=== PATIENT | male | born 1965 | race Caucasian/White ===

== ENCOUNTER 2019-03-04 18:13 | Emergency (ER) | payer BC ==
[2019-03-04 18:33] VITALS: BP 131/83; PULSE 94; RESP 18; TEMP 100.3
--- NOTE | 2019-03-04 19:24 | ED ---
Upper Extremity HPI - General Chief Complaint: Extremity Injury, Upper Stated Complaint: Arm injury Time Seen by Provider: 03/04/19 18:33 Source: patient, EMS Mode of arrival: EMS Limitations: no limitations - History of Present Illness Initial Comments: This is a 48-year-old male here for evaluation status post fall. Patient fall last night from standing onto his right side complaining of severe right-sided pain. Right-sided humerus pain and right-sided arm pain. Patient is able to move his arm without significant difficulty. Patient denying any weakness of his hand and inability to move his hand or forearm. Patient has pain with hands well controlled currently. Patient is somatic injury. Patient was urged to see a [facility] this afternoon and sent here for evaluation by orthopedics. No change in symptoms, patient currently has splint placed MD Complaint: Injury to:: left, shoulder, arm -: days(s) Other Extremity Injury: Arm: Left Other Injuries: none Handedness: right Place: home Severity scale (1-10): 8 Improves With: none Worsens With: none Context: fall, direct blow Associated Symptoms: denies other symptoms - Related Data Allergies Allergy/AdvReac Type Severity Reaction Status Date / Time Penicillins Allergy Rash/Hives Verified 03/04/19 18:29 Review of Systems ROS Statement: Those systems with pertinent positive or pertinent negative responses have been documented in the HPI. ROS Other: All systems not noted in ROS Statement are negative. Past Medical History Past Medical History: No Reported History History of Any Multi-Drug Resistant Organisms: None Reported Past Surgical History: No Surgical Hx Reported Past Psychological History: No Psychological Hx Reported Smoking Status: Current every day smoker Past Alcohol Use History: Occasional Past Drug Use History: None Reported General Exam - General Exam Comments Initial Comments: Left humerus is splinted, patient has good radial ulnar pulses left wrist. Good function of nerves, neurovascular intact radial ulnar and median nerve Limitations: no limitations General appearance: alert, in no apparent distress Head exam: Present: atraumatic, normocephalic, normal inspection Eye exam: Present: normal appearance, PERRL, EOMI. Absent: scleral icterus, conjunctival injection, periorbital swelling ENT exam: Present: normal exam, mucous membranes moist Neck exam: Present: normal inspection. Absent: tenderness, meningismus, lymphadenopathy Respiratory exam: Present: normal lung sounds bilaterally. Absent: respiratory distress, wheezes, rales, rhonchi, stridor Cardiovascular Exam: Present: regular rate, normal rhythm, normal heart sounds. Absent: systolic murmur, diastolic murmur, rubs, gallop, clicks GI/Abdominal exam: Present: soft, normal bowel sounds. Absent: distended, tenderness, guarding, rebound, rigid Extremities exam: Present: normal inspection, full ROM, normal capillary refill. Absent: tenderness, pedal edema, joint swelling, calf tenderness Back exam: Present: normal inspection Neurological exam: Present: alert, oriented X3, CN II-XII intact Psychiatric exam: Present: normal affect, normal mood Skin exam: Present: warm, dry, intact, normal color. Absent: rash Course Vital Signs 03/04/19 18:29 Temperature 100.3 F H Pulse Rate 94 Respiratory 18 Rate Blood Pressure 131/83 O2 Sat by Pulse 95 Oximetry - Reevaluation(s) Reevaluation #1: 03/04/19 21:24 Medical record as well as patient's transferring imaging is reviewed Reevaluation #2: 03/04/19 21:24 X-ray of left humerus shows a comminuted fracture Reevaluation #3: 03/04/19 21:[address] Soto, patient with pain control, they will follow up on an outpatient basis with Medical Decision Making - Medical Decision Making 55 mail to the ER status post fall significant left humerus fracture which is currently splinted. Patient given pain control and discharged home - Radiology Data Radiology results: report reviewed (X-ray left humerus social comminuted multiple fragment humerus fracture), image reviewed Disposition Clinical Impression: Fall, Comminuted left humeral fracture Disposition: HOME SELF-CARE Condition: Good Instructions (If sedation given, give patient instructions): Arm Fracture in Adults (ED) Is patient prescribed a controlled substance at d/c from ED?: Yes When asked, does pt state using other controlled substances?: No If prescribed controlled substance>3 days was MAPS reviewed?: Prescribed <3 Days Referrals: Gonzalo Soto DO [Doctor of Osteopathic Medicine] - 1-2 days
[2019-03-04] MEDS ORDERED: SODIUM CHLORIDE 0.9% 1,000 ML IV STA (19:34)
[2019-03-04] MEDS ORDERED: MORPHINE SULFATE 4 MG/ML SYRINGE IVP STA ×2 (19:34→21:26)
[2019-03-04] MEDS ORDERED: MORPHINE SULFATE 4 MG/ML SYRINGE IVP PRN (19:34)
--- NOTE | 2019-03-04 20:47 | XR ---
EXAMINATION TYPE: XR humerus LT DATE OF EXAM: 03/04/2019 CLINICAL HISTORY: Fall TECHNIQUE: Two views of the left humerus are obtained. COMPARISON: CT outside facility 03/04/2019. FINDINGS/IMPRESSION: Interval splinting. Mildly comminuted fracture through the proximal/mid humeral diaphysis apex latera lly angulated. Medial butterfly fragment present. There is up to 1 cm displacement of fracture fragme nts. Adjacent soft tissue swelling.
[2019-03-04] MEDS ORDERED: Acetaminophen-Codeine 300-30mg TAB PO STA (21:26)
[2019-03-04] MEDS ORDERED: ACET/COD 300 MG/30 MG STARTER PACK 6 TAB BTL PO STA (21:26)
== END 2019-03-04 22:11 | disposition home or self-care (01) ==
LOC: EC 18:13
DX: S42.302A Unspecified fracture of shaft of humerus, left arm, initial encounter for closed fracture (principal); F17.200 Nicotine dependence, unspecified, uncomplicated; Z88.0 Allergy status to penicillin; W19.XXXA Unspecified fall, initial encounter
CPT/HCPCS: 73060; 99283; 96374; 96376; 96361; J2270